=== PATIENT | male | born 1950 | race American Indian/Alaskan Native ===

== ENCOUNTER 2017-06-18 08:20 | Outpatient (CLI) | payer OTHER ==
--- NOTE | 2017-06-18 11:50 | Ultrasound Report ---
ULTRASOUND ABDOMEN COMPLETE: TECHNIQUE: Transabdominal ultrasound with color Doppler interrogation. HISTORY: Left upper quadrant abdominal pain. COMPARISON: none. FINDINGS: LIVER: Normal. BILIARY SYSTEM: Normal. PANCREAS: Normal. SPLEEN: Normal. KIDNEYS: The kidneys are normal size and contour. There is mild increased renal parenchymal echotexture bilaterally consistent with nonspecific renal parenchymal disease. No evidence for focal renal lesion or hydronephrosis. AORTA/IVC: Normal. ASCITES: None. IMPRESSION: Slightly echogenic kidneys consistent with nonspecific renal parenchymal disease. Otherwise, unremarkable exam of the abdomen.
== END 2017-06-18 08:21 | disposition home or self-care (01) ==
LOC: US 08:20
PROVIDERS: ATTEND Internal Medicine
DX: R10.13 Epigastric pain (principal)
CPT/HCPCS: 76700

== ENCOUNTER 2017-07-26 12:40 | Outpatient (CLI) | payer OTHER ==
--- NOTE | 2017-07-26 14:11 | XRay Report ---
ROUTINE CHEST, TWO VIEWS: HISTORY: chest pain. The trachea, heart, mediastinal contour, lung vale and bony thorax are unremarkable. The aorta is mildly ectatic. IMPRESSION: No acute cardiopulmonary process.
--- NOTE | 2017-07-26 14:11 | XRay Report ---
SUPINE KUB: History: Left upper quadrant abdominal pain The abdominal gas pattern is unremarkable. No masses or organomegaly is identified and there is no gross evidence of free air or fluid. No significant soft tissue calcifications are noted. IMPRESSION: Normal study.
== END 2017-07-26 12:41 | disposition home or self-care (01) ==
LOC: XRAY 12:40
PROVIDERS: ATTEND Internal Medicine
DX: R07.9 Chest pain, unspecified (principal); R10.12 Left upper quadrant pain
CPT/HCPCS: 71046; 74018